=== PATIENT | female | born 1985 | race African-American/Black ===

== ENCOUNTER 2024-05-29 20:53 | Inpatient (IN) | payer MEDICARE, OTHER, SELFPAY ==
[2024-05-29] VITALS (11 sets, daily range): BP systolic 112–156; BP diastolic 50–91; BMI 40.8; BMI 39.4
[2024-05-29 17:22] LABS: % Basophils 0.3 % (0-2); % Immature Granulocytes 0.8 % (0-0.5); % Monocytes 5.9 % (1.7-9.3); Absolute Basophils 0.1 10^3/uL (0-0.2); Absolute Immature Granulocytes 0.1 10^3/uL (0-0.05); Absolute Lymphocytes 1.6 10^3/uL (1.2-3.4); Absolute Monocytes 0.9 10^3/uL (0.1-0.6); Absolute Neutrophils 11.9 10^3/uL (1.4-6.5); Hematocrit 45.3 % (37.0-47.0); Hemoglobin 14.6 g/dL (12.0-16.0); Mean Corp Hgb Conc. 32.2 g/dL (33.0-37.0); Mean Corpuscular Hgb 27.3 pg (27.0-31.0); Mean Corpuscular Volume 84.7 fL (81.0-99.0); Mean Platelet Volume 10.2 fL (7.4-10.4); Nucleated Red Blood Cells % 0 %; Platelet Count 456 10^3/uL (130-400); Red Blood Cell Count 5.35 10^6/uL (4.20-5.40); Red Cell Dist. Width 13.9 % (11.5-14.5); White Blood Cell Count 14.5 10^3/uL (4.8-10.8)
[2024-05-29 17:36] LABS: Troponin I < 0.012 ng/ml
[2024-05-29 18:19] LABS: HCG, Serum Qualitative Screen Negative
[2024-05-29 18:20] LABS: ALT (SGPT) 28 U/L (0-35); AST (SGOT) 24 U/L (14-36); Albumin 5.4 g/dl (3.5-5.0); Alkaline Phosphatase 102 U/L (38-126); Blood Urea Nitrogen 16 mg/dl (7-17); Calcium 9.8 mg/dl (8.4-10.2); Carbon Dioxide < 5 mmol/L (22-30); Estimated Creatinine Clearance 103 ml/min; Glucose 490 mg/dl (70-99); Total Bilirubin 0.7 mg/dl (0.2-1.3); Total Protein 9.9 g/dl (6.3-8.2); eGFR > 60.00
[2024-05-29 18:32] LABS: Chloride 103 mmol/L (98-107); Potassium 5.9 mmol/L (3.5-5.1); Sodium 134 mmol/L (135-145)
[2024-05-29] MEDS: NSS 1000 IV ×2 (18:32→21:48)
--- NOTE | 2024-05-29 18:32 | ED.GENMED ---
History of Present Illness
<Celine Allen NP - Last Filed: 05/31/24 16:26>
General
Chief Complaint: Chest Pain
Source: patient
Exam Limitations: none
Time Seen by Provider: 05/29/24 16:59
Nursing documentation reviewed up to this point in time: agreed with
History of Present Illness
History of Present Illness:
Patient to ED from [facility] with complaint of chest pain x 8 days. She also states she has not had access to her medications for the past week. Denies fever/chills, n/v/d. Brought to ED by residential staff for eval.
Past History
<Celine Allen NP - Last Filed: 05/31/24 16:26>
Past History
ED Past Medical History: NIDDM and Psychiatric (bipolar)
Social History
Tobacco: Non-smoker
Alcohol: None
Review of Systems
<Celine Allen NP - Last Filed: 05/31/24 16:26>
Review of Systems
Allergies reviewed?: Yes
All Other Systems: ROS reviewed and negative except as documented in HPI and ROS
Constitutional: Reports no symptoms
EENT: Reports no symptoms
Respiratory: Reports no symptoms
Cardiac: Reports chest pain
ABD/GI: Reports no symptoms
: Reports no symptoms
Musculoskeletal: Reports no symptoms
Skin: Reports no symptoms
Neurological: Reports weakness
Psychiatric: Reports no symptoms
Phy Exam
<Celine Allen NP - Last Filed: 05/31/24 16:26>
General Physical Exam
General Presentation: moderate distress
General age: appears stated age
General Skin: warm and dry
General Habitus: normal
Cardiovascular Exam
Cardiovascular Exam: regular rate/rhythm and no edema
Pulmonary Exam
Pulmonary Exam: lungs clear and no respiratory distress
Gastrointestinal Exam
Gastrointestinal Exam: normal bowel sounds, non tender, soft and no organomegaly
Musculoskeletal Exam
Musculoskeletal Exam: full ROM and neuro vasc intact
Skin Exam
Skin Exam: normal color, warm/dry and no rash
Psychiatric Exam
Psychiatric Exam: anxious
Scores
<Celine Allen NP - Last Filed: 05/31/24 16:26>
Heart Score for Chest Pain Patients
STEMI patient?: Not applicable
Course
<Celine Allen LEARNING DEVELOPMENT SPECIALIST - Last Filed: 05/31/24 16:26>
Orders/Labs/Results
Orders:
Orders
05/29/24 16:26
Electrocardiogram (*1) Urgent
Reason for Study: Chest Pain
05/29/24 16:27
EKG- Treatment ONCE
05/29/24 17:00
B-Hydroxybutyrate Urgent
Comment: ADDON
Complete Blood Count/With Diff Urgent
Comprehensive Metabolic Panel Urgent
HCG, Serum Qualitative Screen Urgent
Comment: ADD ON
Lipase Urgent
Comment: ADD ON
Troponin I Urgent
05/29/24 17:16
D-Dimer Urgent
05/29/24 17:17
Add On- LAB Urgent
Comments:: serum hcg qualitative
Tests Added?: serum hcg qualitative
05/29/24 18:22
Add On- LAB Urgent
Tests Added?: lipase
05/29/24 18:24
0.9% Sodium Chloride 1000 ml [Nss] 1,000 ml IV BOLUS
05/29/24 18:29
Add On- LAB Urgent
Comments:: B-hydroxybutyrate urgent
Tests Added?: B-hydroxybutyrate urgent
05/29/24 18:35
Urinalysis Reflex To Culture Urgent
Date Specimen was Collected: 05/29/24
Time Specimen was Collected: 18:34
Urine Microscopic Reflex Cult Urgent
Urine Culture Urgent
DO Source: U
Specimen Description:
Date Specimen was Collected: 05/29/24
Time Specimen was Collected: 18:34
05/29/24 18:37
Bedside Glucose- Treatment Q1H
Insulin Human Regular [Novolin R] 12 units IV NOW STA
05/29/24 18:45
Reg Insulin 100 Units/100 ml [Novolin R Insulin Infusion] 100 units in 100 ml IV NOW
05/29/24 19:44
B-Hydroxybutyrate Urgent
Basic Metabolic Panel Q2H
05/29/24 20:10
Admit/Transfer Patient As Directed
Co-Sign Provider:
Level of Care: Inpatient admission
Assign to:: ICU
Physician / Group: annalise
Diagnosis: DKA
Reason for Hospitalization: DKA
Expected length of stay greater than two midnights?: Yes
ELOS- Estimated Length of Stay in days: 3
I certify the patient meets the requirements for IP care: Yes
05/29/24 20:11
Code Status As Directed
Resuscitation Status: Full Code
PRN Pain Medication Management As Directed
May give lesser potent ordered pain med per pt: Yes
preference::
Protocol:: Medication orders for pain may be administered in a
manner that supports deferring to patient preference
when the pt is:
- Requesting an ordered lesser potent pain medication.
Least to most potent pain medications are defined
as: acetaminophen < NSAID < tramadol < opioids
(morphine, oxycodone, hydromorphone).
- Requesting a lesser dose of the same medication IF
ORDERED.
- Requesting a less intrusive route of administration
if both routes are prescribed by the provider (PO <
IV).
05/29/24 20:39
Lactated Ringers [Lr] 500 ml IV BOLUS
05/29/24 20:59
Basic Metabolic Panel Q2H
05/29/24 21:38
0.9% Sodium Chloride 1000 ml [Nss] 1,000 ml IV 150 mls/hr
Albuterol [ProAIR HFA INHALER] 1 puff INH R Q4HPRN PRN
Ondansetron Injectable [Zofran] 4 mg IV Q6HPRN PRN
Reg Insulin 100 Units/100 ml [Novolin R Insulin Infusion] 100 units in 100 ml IV PER PROTOCOL
Currently infusing. Continue current dose and titrate:: Yes
05/29/24 21:38
DIETARY CONSULT Routine
Reason for Consult: type 2 Dm
Diabetes Education Consult Routine
Reason for Consult: Other
Newly Diagnosed?: No
Activity As Directed
Activity Level: As Tolerated
Bedside Glucose Monitoring As Directed
Frequency: Q2H
Intake/ Output As Directed
Frequency: Per unit guidelines
Notify MD As Directed
Notify physician if: Nurse to contact provider when glucose reaches 250 to obtain orders for D5 0.45 NaCl
Vital Signs As Directed
Frequency: Per unit guidelines
DX Deep Vein Thrombosis Video Routine
DX Deep Vein Thrombosis Video Routine
05/29/24 22:00
Escitalopram Oxalate [Lexapro] 20 mg PO HS
Olanzapine [Zyprexa] 15 mg PO HS
Sertraline HCl [Zoloft] 25 mg PO HS
Trazodone [Desyrel] 100 mg PO HS
05/30/24 05:39
Cardiovascular Evaluation IN AM
Complete Blood Count/No Diff IN AM
Glycohemoglobin (HgbA1c) IN AM
05/30/24 08:00
Fluticasone/Salmeterol 45/21 [Advair Hfa 45/21 Mcg Inhaler] 2 puff INH R BID
Oxcarbazepine [Trileptal] 900 mg PO BID
05/30/24 18:00
Enoxaparin Sodium [Lovenox] 40 mg SC QPM
05/31/24 04:57
Complete Blood Count/No Diff IN AM
06/01/24 06:00
Complete Blood Count/No Diff IN AM
06/02/24 06:00
Complete Blood Count/No Diff IN AM
06/03/24 06:00
Complete Blood Count/No Diff IN AM
Abnormal Lab Results
05/29/24 05/29/24 05/29/24
17:00 17:16 18:35
WBC 14.5 H 10^3/uL
(4.8-10.8)
MCHC 32.2 L g/dL
(33.0-37.0)
Plt Count 456 H 10^3/uL
(130-400)
Abs Immat Gran (auto) 0.1 H 10^3/uL
(0-0.05)
Absolute Neuts (auto) 11.9 H 10^3/uL
(1.4-6.5)
Absolute Monos (auto) 0.9 H 10^3/uL
(0.1-0.6)
Immature Gran % 0.8 H %
(0-0.5)
Neutrophils % 82.0 H %
(42.2-75.2)
Lymphocytes % 11.0 L %
(20.5-51.1)
D-Dimer 0.70 H ug/mlFEU
(0.00-0.50)
Sodium 134 L mmol/L
(135-145)
Potassium 5.9 H mmol/L
(3.5-5.1)
Carbon Dioxide < 5 L* mmol/L
(22-30)
Glucose 490 H* mg/dl
(70-99)
Total Protein 9.9 H g/dl
(6.3-8.2)
Albumin 5.4 H g/dl
(3.5-5.0)
Urine Ketones 3+ A
(Negative)
Ur Occult Blood Reflex 1+ A
(Negative)
Urine RBC 3-6 A /HPF
(0-2)
Urine Bacteria (Reflex) Moderate A
(Negative)
Urine Glucose 3+ A
(Negative)
Urine Albumin (Reflex) 1+ A
(Neg - Trace)
B-Hydroxybutyrate 8.72 H mmol/L
(0.02-0.27)
POC Glucose
05/29/24 05/29/24 05/29/24
19:12 19:44 20:04
WBC
MCHC
Plt Count
Abs Immat Gran (auto)
Absolute Neuts (auto)
Absolute Monos (auto)
Immature Gran %
Neutrophils %
Lymphocytes %
D-Dimer
Sodium 133 L mmol/L
(135-145)
Potassium
Carbon Dioxide < 5 L* mmol/L
(22-30)
Glucose 407 H mg/dl
(70-99)
Total Protein
Albumin
Urine Ketones
Ur Occult Blood Reflex
Urine RBC
Urine Bacteria (Reflex)
Urine Glucose
Urine Albumin (Reflex)
B-Hydroxybutyrate 8.81 H mmol/L
(0.02-0.27)
POC Glucose 446 H mg/dl 391 H mg/dl
(70-99) (70-99)
05/29/24 17:00
05/29/24 20:45
Vital Signs
Initial and Last Documented VS:
Initial Vital Signs
Temp Pulse Resp BP Pulse Ox
36.6 C 100 22 151/65 100
05/29/24 16:31 05/29/24 16:31 05/29/24 16:31 05/29/24 16:31 05/29/24 16:31
Last Documented Vital Signs
Temp Pulse Resp BP Pulse Ox
36.8 C 106 16 150/79 100
06/02/24 03:54 06/02/24 07:54 06/02/24 07:54 06/02/24 03:54 06/02/24 07:54
<Osito Thompson MD - Last Filed: 06/02/24 08:59>
Orders/Labs/Results
Orders:
Orders
05/29/24 16:26
Electrocardiogram (*1) Urgent
Reason for Study: Chest Pain
05/29/24 16:27
EKG- Treatment ONCE
05/29/24 17:00
B-Hydroxybutyrate Urgent
Comment: ADDON
Complete Blood Count/With Diff Urgent
Comprehensive Metabolic Panel Urgent
HCG, Serum Qualitative Screen Urgent
Comment: ADD ON
Lipase Urgent
Comment: ADD ON
Troponin I Urgent
05/29/24 17:16
D-Dimer Urgent
05/29/24 17:17
Add On- LAB Urgent
Comments:: serum hcg qualitative
Tests Added?: serum hcg qualitative
05/29/24 18:22
Add On- LAB Urgent
Tests Added?: lipase
05/29/24 18:24
0.9% Sodium Chloride 1000 ml [Nss] 1,000 ml IV BOLUS
05/29/24 18:29
Add On- LAB Urgent
Comments:: B-hydroxybutyrate urgent
Tests Added?: B-hydroxybutyrate urgent
05/29/24 18:35
Urinalysis Reflex To Culture Urgent
Date Specimen was Collected: 05/29/24
Time Specimen was Collected: 18:34
Urine Microscopic Reflex Cult Urgent
Urine Culture Urgent
DO Source: U
Specimen Description:
Date Specimen was Collected: 05/29/24
Time Specimen was Collected: 18:34
05/29/24 18:37
Bedside Glucose- Treatment Q1H
Insulin Human Regular [Novolin R] 12 units IV NOW STA
05/29/24 18:45
Reg Insulin 100 Units/100 ml [Novolin R Insulin Infusion] 100 units in 100 ml IV NOW
05/29/24 19:44
B-Hydroxybutyrate Urgent
Basic Metabolic Panel Q2H
05/29/24 20:10
Admit/Transfer Patient As Directed
Co-Sign Provider:
Level of Care: Inpatient admission
Assign to:: ICU
Physician / Group: annalise
Diagnosis: DKA
Reason for Hospitalization: DKA
Expected length of stay greater than two midnights?: Yes
ELOS- Estimated Length of Stay in days: 3
I certify the patient meets the requirements for IP care: Yes
05/29/24 20:11
Code Status As Directed
Resuscitation Status: Full Code
PRN Pain Medication Management As Directed
May give lesser potent ordered pain med per pt: Yes
preference::
Protocol:: Medication orders for pain may be administered in a
manner that supports deferring to patient preference
when the pt is:
- Requesting an ordered lesser potent pain medication.
Least to most potent pain medications are defined
as: acetaminophen < NSAID < tramadol < opioids
(morphine, oxycodone, hydromorphone).
- Requesting a lesser dose of the same medication IF
ORDERED.
- Requesting a less intrusive route of administration
if both routes are prescribed by the provider (PO <
IV).
05/29/24 20:39
Lactated Ringers [Lr] 500 ml IV BOLUS
05/29/24 20:59
Basic Metabolic Panel Q2H
05/29/24 21:38
0.9% Sodium Chloride 1000 ml [Nss] 1,000 ml IV 150 mls/hr
Albuterol [ProAIR HFA INHALER] 1 puff INH R Q4HPRN PRN
Ondansetron Injectable [Zofran] 4 mg IV Q6HPRN PRN
Reg Insulin 100 Units/100 ml [Novolin R Insulin Infusion] 100 units in 100 ml IV PER PROTOCOL
Currently infusing. Continue current dose and titrate:: Yes
05/29/24 21:38
DIETARY CONSULT Routine
Reason for Consult: type 2 Dm
Diabetes Education Consult Routine
Reason for Consult: Other
Newly Diagnosed?: No
Activity As Directed
Activity Level: As Tolerated
Bedside Glucose Monitoring As Directed
Frequency: Q2H
Intake/ Output As Directed
Frequency: Per unit guidelines
Notify MD As Directed
Notify physician if: Nurse to contact provider when glucose reaches 250 to obtain orders for D5 0.45 NaCl
Vital Signs As Directed
Frequency: Per unit guidelines
DX Deep Vein Thrombosis Video Routine
DX Deep Vein Thrombosis Video Routine
05/29/24 22:00
Escitalopram Oxalate [Lexapro] 20 mg PO HS
Olanzapine [Zyprexa] 15 mg PO HS
Sertraline HCl [Zoloft] 25 mg PO HS
Trazodone [Desyrel] 100 mg PO HS
05/30/24 05:39
Cardiovascular Evaluation IN AM
Complete Blood Count/No Diff IN AM
Glycohemoglobin (HgbA1c) IN AM
05/30/24 08:00
Fluticasone/Salmeterol 45/21 [Advair Hfa 45/21 Mcg Inhaler] 2 puff INH R BID
Oxcarbazepine [Trileptal] 900 mg PO BID
05/30/24 18:00
Enoxaparin Sodium [Lovenox] 40 mg SC QPM
05/31/24 04:57
Complete Blood Count/No Diff IN AM
06/01/24 06:00
Complete Blood Count/No Diff IN AM
06/02/24 06:00
Complete Blood Count/No Diff IN AM
06/03/24 06:00
Complete Blood Count/No Diff IN AM
Abnormal Lab Results
05/29/24 05/29/24 05/29/24
17:00 17:16 18:35
WBC 14.5 H 10^3/uL
(4.8-10.8)
MCHC 32.2 L g/dL
(33.0-37.0)
Plt Count 456 H 10^3/uL
(130-400)
Abs Immat Gran (auto) 0.1 H 10^3/uL
(0-0.05)
Absolute Neuts (auto) 11.9 H 10^3/uL
(1.4-6.5)
Absolute Monos (auto) 0.9 H 10^3/uL
(0.1-0.6)
Immature Gran % 0.8 H %
(0-0.5)
Neutrophils % 82.0 H %
(42.2-75.2)
Lymphocytes % 11.0 L %
(20.5-51.1)
D-Dimer 0.70 H ug/mlFEU
(0.00-0.50)
Sodium 134 L mmol/L
(135-145)
Potassium 5.9 H mmol/L
(3.5-5.1)
Carbon Dioxide < 5 L* mmol/L
(22-30)
Glucose 490 H* mg/dl
(70-99)
Total Protein 9.9 H g/dl
(6.3-8.2)
Albumin 5.4 H g/dl
(3.5-5.0)
Urine Ketones 3+ A
(Negative)
Ur Occult Blood Reflex 1+ A
(Negative)
Urine RBC 3-6 A /HPF
(0-2)
Urine Bacteria (Reflex) Moderate A
(Negative)
Urine Glucose 3+ A
(Negative)
Urine Albumin (Reflex) 1+ A
(Neg - Trace)
B-Hydroxybutyrate 8.72 H mmol/L
(0.02-0.27)
POC Glucose
05/29/24 05/29/24 05/29/24
19:12 19:44 20:04
WBC
MCHC
Plt Count
Abs Immat Gran (auto)
Absolute Neuts (auto)
Absolute Monos (auto)
Immature Gran %
Neutrophils %
Lymphocytes %
D-Dimer
Sodium 133 L mmol/L
(135-145)
Potassium
Carbon Dioxide < 5 L* mmol/L
(22-30)
Glucose 407 H mg/dl
(70-99)
Total Protein
Albumin
Urine Ketones
Ur Occult Blood Reflex
Urine RBC
Urine Bacteria (Reflex)
Urine Glucose
Urine Albumin (Reflex)
B-Hydroxybutyrate 8.81 H mmol/L
(0.02-0.27)
POC Glucose 446 H mg/dl 391 H mg/dl
(70-99) (70-99)
05/29/24 17:00
05/29/24 20:45
Vital Signs
Initial and Last Documented VS:
Initial Vital Signs
Temp Pulse Resp BP Pulse Ox
36.6 C 100 22 151/65 100
05/29/24 16:31 05/29/24 16:31 05/29/24 16:31 05/29/24 16:31 05/29/24 16:31
Last Documented Vital Signs
Temp Pulse Resp BP Pulse Ox
36.8 C 106 16 150/79 100
06/02/24 03:54 06/02/24 07:54 06/02/24 07:54 06/02/24 03:54 06/02/24 07:54
<Celine Allen NP - Last Filed: 05/31/24 16:26>
*Radiology
Radiology exam reviewed: radiology read reviewed
*Pulse Oximetry
Patient hypoxic: no
*Critical Care Note
Total Time (30-74mins, 75-104mins- exclusive of procedures): Not Applicable
ED Attending Note
<Celine Allen NP - Last Filed: 05/31/24 16:26>
-
Portions of this chart may have been created with voice recognition software.� Occasional wrong word or��sound alike� substitutions may have occurred due to the inherent limitations of voice recognition software.
<Osito Thompson MD - Last Filed: 06/02/24 08:59>
ED Attending Note
Patient seen and examined by attending physician: Yes
ED Attending Note:
I have seen and evaluated the patient with a [id number] encounter. I have spoken to the advance practicer provider and involved in the medical history, the physical exam, medical decision making.
Evaluation and management service: agree unless noted differently below.
Results interpretation: agree unless noted differently below.
Focused HPI: 39-year-old female with a past medical history of hypertension, asthma, diabetes, obesity who presents to the ER from [facility] is presenting for evaluation of chest pain but was also found to be severely
hyperglycemic. Patient reports that she has had chest pain for the past week�she describes aching pain associated palpitations. She denies any shortness of breath. She says that she has not been able to take her metformin for the past week.
Physical exam: Awake alert not in distress. Hypertensive, tachycardic, tachypneic; normothermic, normal pulse ox. She has no cardiac rubs gallops or murmurs. Lungs are clear to auscultation bilaterally. Abdomen soft, nontender to deep palpation.
No edema in her extremities.
Medical Decision Makin-year-old female presents for evaluation of chest pain and also hyperglycemia in the setting of metformin noncompliance. Vitals and exam as above. Labs were sent off including a CBC which shows signs consistent with
hemoconcentration. CMP shows anion gap metabolic acidosis with bicarb less than 5. Potassium 5.9. Glucose 490. Consistent with DKA. Given IV fluids, will start insulin infusion. Admit for continued management. Trend troponin. Check chest
x-ray. UA pending.
Discharge Plan
Departure
Patient Disposition: Admit
Date of Disposition: 05/29/24
Time of Disposition: 18:48
Presentation/result/management discussed w/ accepting MD/DO: Hospitalist
Patient with high blood pressure during this ER visit?: No
Condition: Fair
Covid-19: Not Applicable
Discharge Problem:
DKA (diabetic ketoacidosis)
Interventions
Interventions:
*Risk Screen - Suicide Last Done: 05/29/24 16:39
*General Assessment Last Done: 05/29/24 16:39
*Neglect/Abuse Screening Last Done: 05/29/24 16:39
*ED COVID-19 Vaccine History Last Done: 05/29/24 16:39
*Nursing Disposition Last Done: 05/29/24 21:18
ED- Cardiac Assessment Last Done: 05/29/24 16:55
Discharge Date and Time
Discharge Date/Time: 05/29/24 21:18
[2024-05-29 18:39] LABS: Lipase 270 U/L (23-300)
[2024-05-29 18:50] LABS: Urine Albumin 1+ (Neg - Trace); Urine Bilirubin Negative (Negative); Urine Character Clear (Clear); Urine Color Yellow; Urine Glucose 3+ (Negative); Urine Ketone 3+ (Negative); Urine Leukocyte Negative (Negative); Urine Nitrite Negative (Negative); Urine Occult Blood 1+ (Negative); Urine Specific Gravity 1.025 (<1.030); Urine Urobilinogen Negative (Neg - 1+)
[2024-05-29] MEDS: NOVOLIN R 12 UNITS IV (19:01)
[2024-05-29 19:03] LABS: Urine White Cell 0-2 /HPF (0-5)
[2024-05-29 19:04] LABS: Urine Bacteria Moderate (Negative)
[2024-05-29 19:13] LABS: Glucose - Point of Care 446 mg/dl (70-99)
[2024-05-29] MEDS: NOVOLIN R INSULIN INFUSION 100 IV (19:13)
--- NOTE | 2024-05-29 19:32 | HPS.HSE ---
Family Physician
-
Family Physician: * NONE
Chief Complaint
-
palpitation
History of Present Illness
39 year old with PMH for DM, athma, HTN, Bipolar presented to us with palpitation for past few days. patient stated lower back pain. she was diagnosed with diabetes insipidus a year ago,since then she is on metformin. She also states she has not
had access to her medications for the past week. Denies fever/chills, n/v/d. patient denied sob. denied HUANG,dizzy or syncope. denied abdominal pain,n,v,d. denied dysuria or hematuria, but stated urgency.
on arrival she was noted in [facility]. admitting for further management.
Medical History
Past Medical History
Past Medical History: Reports Other
Additional Past Medical History:
DM insipidus
type 2 Dm
asthma
Bipolar
HTn
Past Surgical History: Reports None
Social History
Tobacco: Non-smoker
Alcohol: None
Drug: None
Family History
Family History: Not pertinent
Allergies / Home Medications
Allergies reflects when Allergies were last updated in [facility].
Home Medications with original date entered in [facility]
Allergy/Medication List:
Allergies
Allergy/AdvReac Type Severity Reaction Status Date / Time
acetaminophen [From Tylenol] Allergy throat Verified 05/29/24 16:28
closing
latex Allergy Rash Verified 05/29/24 16:38
Home Medications
albuterol sulfate 90 mcg/actuation breath activated powder inhaler (ProAir RespiClick) 1 inh inhalation R Q4HPRN PRN sob/wheezing 05/29/24
escitalopram oxalate 20 mg tablet 20 mg PO HS 05/29/24
fluticasone 100 mcg-salmeterol 50 mcg/dose blistr powdr for inhalation 1 inh inhalation R BID 05/29/24
metformin 500 mg tablet 500 mg PO BID 05/29/24
olanzapine 15 mg tablet 15 mg PO HS 05/29/24
oxcarbazepine 300 mg tablet 900 mg PO BID 05/29/24
sertraline 25 mg tablet 25 mg PO HS 05/29/24
trazodone 100 mg tablet 100 mg PO HS 05/29/24
Review of Systems
-
Constitutional: Reports No Symptoms
EENT: Reports No Symptoms
Respiratory: Reports No Symptoms
Cardiac: Reports Palpitations
Abdomen/GI: Reports No Symptoms
: Reports Urgency
Musculoskeletal: Reports No Symptoms
Skin: Reports No Symptoms
Neurological: Reports No Symptoms
Endocrine: Reports No Symptoms
Hematologic/Lymphatic: Reports No Symptoms
Psych: Reports No Symptoms
Physical Exam
Vital Signs
Vital Signs
Temp Pulse Resp BP Pulse Ox
97.8 F 108 26 122/50 100
05/29/24 16:31 05/29/24 19:15 05/29/24 19:15 05/29/24 19:00 05/29/24 18:30
Physical Exam
General: Well Developed, Well Nourished and No Apparent Distress
HEENT: NormoCephalic, Moist mucous membranes and Atraumatic
Respiratory: Clear
Cardiac: S1/S2 and Regular Rhythm; No Murmur or Rub
GI: Soft, Non Tender, Non Distended and Normal Bowel Sounds; No Organomegaly
Rectal: Deferred by Provider
Musculoskeletal: No Clubbing, No Cyanosis and No Edema
Skin: No Rash
Neuro: AO x 3 and Nonfocal/grossly intact
Psych: Calm
Laboratory Results
-
05/29/24 17:00
Laboratory Results
Total Bilirubin 0.7 mg/dl (0.2-1.3) 05/29/24 17:00
AST 24 U/L (14-36) 05/29/24 17:00
ALT 28 U/L (0-35) 05/29/24 17:00
Alkaline Phosphatase 102 U/L (38-126) 05/29/24 17:00
Troponin I < 0.012 ng/ml 05/29/24 17:00
Lipase 270 U/L (23-300) 05/29/24 17:00
Data Reviewed
-
Lab Data: Labs Reviewed by me
Impression/Plan
-
#diabetic ketoacidosis
#hxt of DM insipidus
-fluids continued
-insulin infusion
-monitor blood sugar
-hold metformin
-if blood sugar drop below 200,initiate on [id number] saline
#/palpitation likely from DM ketoacidosis
-trend trop
-EKg with NSR
-continue to trend trop
#leukocytosis likely reactive
-wbc 14.5
-UA negative
-ctm
#hxt of asthma
-not in acute exacerbation
-nebs from home continued
#Bipolar
-citalopram continued
-olanzapine, oxcarbazepine, sertraline continued
-Trazodone continued
#DVT Prophylaxis
-scd
#CODE status
-full code
[2024-05-29 20:07] LABS: Glucose - Point of Care 391 mg/dl (70-99)
[2024-05-29 20:13] LABS: Blood Urea Nitrogen 16 mg/dl (7-17); Calcium 9.1 mg/dl (8.4-10.2); Carbon Dioxide < 5 mmol/L (22-30); Estimated Creatinine Clearance 103 ml/min; Glucose 407 mg/dl (70-99); eGFR > 60.00
[2024-05-29 20:21] LABS: B-Hydroxybutyrate 8.72 mmol/L (0.02-0.27)
--- NOTE | 2024-05-29 20:40 | W.PN.UPDATE ---
Update Note
Progress Note Update
Patient seen in conjunction with MACHELLE. I agree with the findings on history and physical. I concur with the assessment and plan as stated otherwise.
This is a 39-year-old female with past medical history of type 2 diabetes on metformin, anxiety depression and mild intermittent asthma who presents to the emergency department with complaints of several days of chest pain and was found to be in DKA.
Patient is being transferred to present. She has been off her medications for about 8 days because she is does not have access to them. She reports that she has had DKA in the past and is not clear whether this was in the setting of diagnosis.
She is never been on insulin.
She reports nausea and some chest pain. She denies shortness of breath. She denies wheezing or cough.
On arrival in the emergency department patient was afebrile she was normal tensive at 122/80 and she was borderline tachycardic at 100. ECG shows a sinus tach at 100. She was satting 100% on room air. Troponin was negative. She had a white count
of 14 with a normal hemoglobin and platelet count. Chemistries were mostly unremarkable with a potassium of 5.9 with a bicarb of less than 5. Beta-hydroxybutyrate was elevated. UA shows urinary ketones.
Assessment and plan
DKA
- admit to icu, insulin protocol.
- NS 1 L in ED, giving additional 500 ml LR bolus
- insulin gtt, glucose q 1, chem q 2 - 4.
- NS at 150 ml/hr for now
- antiemetics prn
- npo, holding metformin
- a1c and lipid panel in am
- intensivisit consult
CP - Non-cardiac. Trop negative. ECG non-ischemic
- trend trop for now
Asthma
- prn albuterol
- continue ICS
Continue Trileptal and sertraline
DVT PPX - lovenox
Code Status - Full code.
[2024-05-29 20:49] LABS: Chloride 105 mmol/L (98-107); Potassium 4.6 mmol/L (3.5-5.1); Sodium 133 mmol/L (135-145)
[2024-05-29 21:02] LABS: Glucose - Point of Care 277 mg/dl (70-99)
[2024-05-29 21:45] LABS: Glucose - Point of Care 264 mg/dl (70-99)
[2024-05-29 21:45] LABS: Blood Urea Nitrogen 16 mg/dl (7-17); Calcium 8.8 mg/dl (8.4-10.2); Carbon Dioxide < 5 mmol/L (22-30); Chloride 107 mmol/L (98-107); Estimated Creatinine Clearance 114 ml/min; Glucose 290 mg/dl (70-99); Potassium 4.8 mmol/L (3.5-5.1); Sodium 134 mmol/L (135-145); eGFR > 60.00
[2024-05-29 22:05] LABS: B-Hydroxybutyrate 8.81 mmol/L (0.02-0.27)
[2024-05-29 22:26] LABS: Glucose - Point of Care 218 mg/dl (70-99)
--- NOTE | 2024-05-29 22:26 | PTCARENOTE ---
On arrival from ED, pt SOB with exertion moving from stretcher to bed, AAOx3, denies pain, pt states odd comments during admit questions that sometimes do not make sense, staff asking pt to clarify and then pt gives a different more appropriate
answer. DYNAMITE SHOOTER made aware, no new orders at this time. SR to low ST on the monitor, denies chest pain, 99% RA, tachypneic, purwick in place, R elbow bruise on admit, two inhalers from home noted and pharmacy is aware, inhalers remain at bedside, initial
AccuCheck was 264, insulin gtt was received from ED running at 3 units see flowsheet. oriented to room, bed alarm on and call navarrete in reach. RUE midline intact placed by IV team.
[2024-05-29] MEDS: DESYREL PO (23:02)
[2024-05-29] MEDS: ZYPREXA 15 MG PO (23:06)
[2024-05-29] MEDS: LEXAPRO 20 MG PO (23:06)
[2024-05-29 23:07] LABS: Glucose - Point of Care 213 mg/dl (70-99)
[2024-05-29 23:15] LABS: Troponin I < 0.012 ng/ml
[2024-05-30] VITALS (24 sets, daily range): BP systolic 101–149; BP diastolic 41–109; BMI 39.4
[2024-05-30 00:12] LABS: Glucose - Point of Care 194 mg/dl (70-99)
[2024-05-30] MEDS: D5/0.45%NSS with KCL 20 MEQ 1000 IV ×4 (00:14→20:16)
[2024-05-30] MEDS: ZOLOFT 25 MG PO ×2 (00:14→23:01)
[2024-05-30 01:13] LABS: Glucose - Point of Care 197 mg/dl (70-99)
[2024-05-30 02:12] LABS: Glucose - Point of Care 214 mg/dl (70-99)
[2024-05-30 03:08] LABS: Blood Urea Nitrogen 14 mg/dl (7-17); Calcium 8.6 mg/dl (8.4-10.2); Carbon Dioxide < 5 mmol/L (22-30); Chloride 109 mmol/L (98-107); Estimated Creatinine Clearance > 125 ml/min; Glucose 213 mg/dl (70-99); Potassium 4.8 mmol/L (3.5-5.1); Sodium 135 mmol/L (135-145); eGFR > 60.00
[2024-05-30 03:17] LABS: Glucose - Point of Care 223 mg/dl (70-99)
--- NOTE | 2024-05-30 04:00 | PTCARENOTE ---
no changes from prior assessment, denies pain and SOB, denies N/V, pt appears to be resting comfortably in bed, call navarrete in reach. remains on insulin gtt per orders.
[2024-05-30 04:13] LABS: Glucose - Point of Care 217 mg/dl (70-99)
[2024-05-30 05:18] LABS: Glucose - Point of Care 251 mg/dl (70-99)
[2024-05-30 05:57] LABS: Hematocrit 34.7 % (37.0-47.0); Hemoglobin 11.9 g/dL (12.0-16.0); Mean Corp Hgb Conc. 34.3 g/dL (33.0-37.0); Mean Corpuscular Hgb 27.7 pg (27.0-31.0); Mean Corpuscular Volume 80.7 fL (81.0-99.0); Mean Platelet Volume 10.1 fL (7.4-10.4); Platelet Count 326 10^3/uL (130-400); Red Cell Dist. Width 13.8 % (11.5-14.5); White Blood Cell Count 14.4 10^3/uL (4.8-10.8)
--- NOTE | 2024-05-30 06:03 | PTCARENOTE ---
Hgb went from 14.6 to 11.9 no signs of bleeding noted, ICU HOME SECURITY PROFESSIONAL made aware, no new orders at this time
[2024-05-30 06:14] LABS: Glucose - Point of Care 239 mg/dl (70-99)
[2024-05-30 07:02] LABS: Glucose - Point of Care 304 mg/dl (70-99)
[2024-05-30] MEDS: ADVAIR HFA 45/21 MCG INHALER 2 PUFF INH ×2 (07:30→20:37)
--- NOTE | 2024-05-30 07:33 | W.PN.HOSP.TC ---
Today's Communication/Plan
-
insulin gtt
awaiting AM BMP; ABG ordered given level of acidosis
DM BLASTING WORKER consult
Assessment / Plan
Assessment / Plan
This is a 39-year-old female with past medical history of type 2 diabetes on metformin, anxiety depression and mild intermittent asthma who presents to the emergency department with complaints of several days of chest pain and was found to be in
DKA. She has been off her medications for about 8 days because she is does not have access to them.
Assessment and plan
DKA
- admitted to ICU
- patient's BGL down-trending but bicarb has remained < 5 --> obtain repeat labs now and obtain ABG
- continue insulin gtt
- continue IVF - NS + KCl 20 @ 150cc/hr ; add dextrose when glucose < 200
- antiemetics prn
- npo, holding metformin - hold indefinitely with this level of acidosis
- a1c and lipid panel in am
- intensivisit consult
- BLASTING WORKER DM consult
Reactive Leukocytosis
Anemia
-likely 2/2 dilution
CP - Non-cardiac. Trop negative. ECG non-ischemic
-Troponins negative; patient stating chest pain resolved this morning
Asthma
- prn albuterol
- continue ICS
Continue Trileptal and sertraline
DVT PPX - lovenox
Code Status - Full code.
Total Critical Care Time 35 minutes. I was immediately available to the patient and staff. I personally examined, reviewed labs, diagnostic images/reports, interpretations, treatment plans, discussed patient care with other providers and family
or caregivers (if patient is unable to make decisions), entered orders as appropriate and documented the medical record.
Anticipated Discharge: 24 - 48 hours
Subjective/Interval History
-
Date of Service: May 30, 2024
patient is sleeping but arousable. denies current chest pain. states her abdomen feels full
Objective Data
-
Labs:
Laboratory Results
05/29/24 05/29/24 05/29/24
19:44 20:59 22:00
WBC
Hgb
Hct
Plt Count
Sodium 133 L 134 L Cancelled
Potassium 4.6 4.8 Cancelled
Chloride 105 107
Carbon Dioxide < 5 L* < 5 L*
BUN 16 16
Creatinine 1.0 0.9
Glucose 407 H 290 H
Calcium 9.1 8.8
05/29/24 05/29/24 05/30/24
22:00 23:00 01:45
WBC
Hgb
Hct
Plt Count
Sodium Cancelled 135
Potassium Cancelled Cancelled 4.8
Chloride Cancelled Cancelled 109 H
Carbon Dioxide Cancelled Cancelled < 5 L*
BUN Cancelled Cancelled 14
Creatinine Cancelled Cancelled 0.6
Glucose Cancelled Cancelled 213 H
Calcium Cancelled Cancelled 8.6
05/30/24 05/30/24
05:39 10:00
WBC 14.4 H
Hgb 11.9 L
Hct 34.7 L
Plt Count 326 D
Sodium Cancelled Pending
Potassium Cancelled Pending
Chloride Cancelled Pending
Carbon Dioxide Cancelled Pending
BUN Cancelled Pending
Creatinine Cancelled Pending
Glucose Cancelled Pending
Calcium Cancelled Pending
Vital Signs:
Vital Signs
Temp Pulse Resp BP Pulse Ox
97.4 F 78 18 143/72 100
05/30/24 03:35 05/30/24 06:00 05/30/24 06:00 05/30/24 06:00 05/30/24 06:00
I&O
05/29/24 05/30/24 05/31/24
06:59 06:59 06:59
Intake Total
Output Total 250 / 250
Balance -220 / -220
Review of Systems
-
History Source: Patient
All other systems: Reviewed and negative
Physical Exam
-
General: No Apparent Distress
HEENT: PERRLA
Respiratory: Clear to Auscultation; Negative Wheezes
Cardiac: Regular Rhythm and S1/S2
GI: Soft and Nontender
Musculoskeletal: No Edema
Skin: Warm and Dry; Negative Rash
Neuro: Other (sleepy but arousable and will answer full questions)
Psych: Calm
Data Reviewed
-
Diagnostic Radiology: Report Reviewed by me
Labs: Labs Reviewed by me
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
--- NOTE | 2024-05-30 08:00 | PTCARENOTE ---
Received pt sleeping.Awakens to voice.Oriented x 3.Speech is appropriate.Pt states ' I have to poop'.Pt ambulated to toilet with minimal assistance.Gait is steady.Declined offer to assist to chair stating she wanted to go back to bed.Denies pain but
c/o general malaise.Declined am care.SR noted.IVF and Insulin gtt infusing.Lungs CTA,POX 98% on RA.Does not want to eat.No BM.Purewick discontinued as pt voided in bathroom.Plan of care discussed with pt.
[2024-05-30 08:05] LABS: HDL Cholesterol 38 mg/dl; LDL Cholesterol, Calculated 121 mg/dl; Total Cholesterol 179 mg/dl (50-199); Triglyceride 103 mg/dl (10-149); Very Low Density Lipoprotein 20 mg/dl (0-30)
[2024-05-30 08:06] LABS: Glucose - Point of Care 222 mg/dl (70-99)
[2024-05-30] MEDS: TRILEPTAL 900 MG PO ×2 (08:10→20:08)
[2024-05-30 08:13] LABS: B.E. -18.2 mmol/L; O2 Saturation % 99.7 % (94-98); PO2 173 mmHg (83-108); pH 7.23 (7.35-7.45)
[2024-05-30 08:15] LABS: HCO3 7.1 mmol/L (21-28); PCO2 17 mmHg (32-35)
[2024-05-30 08:31] LABS: Blood Urea Nitrogen 12 mg/dl (7-17); Calcium 8.6 mg/dl (8.4-10.2); Carbon Dioxide 6 mmol/L (22-30); Chloride 109 mmol/L (98-107); Estimated Creatinine Clearance > 125 ml/min; Glucose 256 mg/dl (70-99); Potassium 4.1 mmol/L (3.5-5.1); Sodium 133 mmol/L (135-145); eGFR > 60.00
[2024-05-30 08:59] LABS: Blood Urea Nitrogen 12 mg/dl (7-17); Calcium 8.5 mg/dl (8.4-10.2); Carbon Dioxide < 5 mmol/L (22-30); Chloride 109 mmol/L (98-107); Estimated Creatinine Clearance > 125 ml/min; Glucose 240 mg/dl (70-99); Potassium 4.7 mmol/L (3.5-5.1); Sodium 134 mmol/L (135-145); eGFR > 60.00
[2024-05-30 09:08] LABS: HDL Cholesterol 34 mg/dl; LDL Cholesterol, Calculated 117 mg/dl; Total Cholesterol 170 mg/dl (50-199); Triglyceride 96 mg/dl (10-149); Very Low Density Lipoprotein 19 mg/dl (0-30)
[2024-05-30 09:12] LABS: Glucose - Point of Care 257 mg/dl (70-99)
[2024-05-30 09:27] LABS: Glycohemoglobin (HgbA1c) 14.4 % (4.0-5.6)
[2024-05-30 10:06] LABS: Glucose - Point of Care 217 mg/dl (70-99)
--- NOTE | 2024-05-30 10:28 | CM ---
Per Damon Scott in Security, they were notified by [facility] that this patient was released from custody. Update to CM.
--- NOTE | 2024-05-30 10:56 | PN.DE.MGMTRT ---
Insulin Management
- -
05/30/2024 Diabetes Management Consult
Patient admitted 05/29 c/o chest pain for 8 days. Found to be in DKA. PMH Type 2 diabetes, bipolar, HTN, asthma, obesity. Prior to admission was ordered 500 mg metformin BID. A1C 14.4%, cr .6, eGFR > 60.
Patient is sleeping very difficult to arouse, opens eyes briefly, but dozes right back. She was able to tell me she has had diabetes 21 years, initially gestational diabetes. States she was not able to take her metformin because pharmacy told her
the prescription had already been picked up. She states she does have a glucose monitor but she will take another one, provided Contour Next.
Glucose on admission 490, GAP 30. GAP now 18, on insulin infusion @ 3 to 5 units per hour. Will continue insulin infusion at this time.
I spoke with Supervisor Locomotive and rounding team.
Patient will need insulin at discharge. Will follow
Diabetes History
- -
Type of Diabetes: 2
Pre-Admission Diabetes Regimen
05/29/24 05/29/24 05/29/24
17:00 19:44 20:45
Creatinine 1.0 1.0 Cancelled
05/29/24 05/29/24 05/29/24
20:59 22:00 22:45
Creatinine 0.9 Cancelled Cancelled
05/29/24 05/30/24 05/30/24
23:00 01:45 05:39
Creatinine Cancelled 0.6 0.6
05/30/24
08:04
Creatinine 0.6
Lab Results
Hemoglobin A1c 14.4 % (4.0-5.6) H 05/30/24 05:39
Insulin Pump Settings
IP Diabetes Regimen
05/29/24 05/29/24 05/29/24
17:00 19:12 19:44
Glucose 490 H* 407 H
POC Glucose 446 H
05/29/24 05/29/24 05/29/24
20:04 20:45 20:59
Glucose Cancelled 290 H
POC Glucose 391 H
05/29/24 05/29/24 05/29/24
21:01 21:33 22:00
Glucose Cancelled
POC Glucose 277 H 264 H
05/29/24 05/29/24 05/29/24
22:14 22:45 22:55
Glucose Cancelled
POC Glucose 218 H 213 H
05/29/24 05/30/24 05/30/24
23:00 00:01 01:01
Glucose Cancelled
POC Glucose 194 H 197 H
05/30/24 05/30/24 05/30/24
01:45 02:00 03:05
Glucose 213 H
POC Glucose 214 H 223 H
05/30/24 05/30/24 05/30/24
04:01 05:06 05:39
Glucose 240 H
POC Glucose 217 H 251 H
05/30/24 05/30/24 05/30/24
06:03 06:50 07:52
Glucose
POC Glucose 239 H 304 H 222 H
05/30/24 05/30/24 05/30/24
08:04 09:00 09:55
Glucose 256 H
POC Glucose 257 H 217 H
Patient Education
[2024-05-30 11:21] LABS: Glucose - Point of Care 230 mg/dl (70-99)
[2024-05-30 12:26] LABS: Glucose - Point of Care 311 mg/dl (70-99)
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
--- NOTE | 2024-05-30 12:32 | PTCARENOTE ---
Pt assessed.No change in assessment noted.BMP is pending.
--- NOTE | 2024-05-30 12:36 | CM ---
Patient living arrangements unclear. CM will return to confirm with patient as she is able/willing to provide information.
Plan; TBD
[2024-05-30 12:55] LABS: Blood Urea Nitrogen 10 mg/dl (7-17); Calcium 8.5 mg/dl (8.4-10.2); Carbon Dioxide 8 mmol/L (22-30); Chloride 109 mmol/L (98-107); Estimated Creatinine Clearance > 125 ml/min; Glucose 258 mg/dl (70-99); Potassium 4.3 mmol/L (3.5-5.1); Sodium 134 mmol/L (135-145); eGFR > 60.00
[2024-05-30 13:23] LABS: Glucose - Point of Care 228 mg/dl (70-99)
[2024-05-30 14:26] LABS: Glucose - Point of Care 234 mg/dl (70-99)
[2024-05-30] MEDS: NOVOLIN R INSULIN INFUSION 100 IV (15:26)
[2024-05-30 15:33] LABS: Glucose - Point of Care 223 mg/dl (70-99)
--- NOTE | 2024-05-30 15:35 | PTCARENOTE ---
Pt ambulated to the bathroom to void.Gait is steady.Denies pain or nausea.c/o hunger.Ordered dinner.IVF and Insulin gtt maintained as ordered.
[2024-05-30 16:25] LABS: Glucose - Point of Care 231 mg/dl (70-99)
[2024-05-30 16:36] LABS: Hemoglobin 11.6 g/dL (12.0-16.0)
--- NOTE | 2024-05-30 16:40 | PTCARENOTE ---
Pt assessed.No change in assessment noted.
[2024-05-30 16:57] LABS: Blood Urea Nitrogen 11 mg/dl (7-17); Calcium 8.6 mg/dl (8.4-10.2); Carbon Dioxide 10 mmol/L (22-30); Chloride 109 mmol/L (98-107); Estimated Creatinine Clearance > 125 ml/min; Glucose 275 mg/dl (70-99); Potassium 4.6 mmol/L (3.5-5.1); Sodium 134 mmol/L (135-145); eGFR > 60.00
[2024-05-30] MEDS: LOVENOX 40 MG SC (17:11)
[2024-05-30 17:21] LABS: Glucose - Point of Care 275 mg/dl (70-99)
[2024-05-30 18:15] LABS: Glucose - Point of Care 322 mg/dl (70-99)
--- NOTE | 2024-05-30 18:16 | PTCARENOTE ---
Pt ate 100% dinner.1800 blood glucose 322.Dr Pulido made aware.
[2024-05-30 19:34] LABS: Glucose - Point of Care 289 mg/dl (70-99)
--- NOTE | 2024-05-30 20:00 | PTCARENOTE ---
Pt received drowsy but easily arousable. Insulin gtt titrated based on blood sugar. Pt ambulated to bathroom and voided large amt in toilet. Pt then became lightheaded so assisted back to bed. Assessment as charted.
[2024-05-30 20:15] LABS: Glucose - Point of Care 289 mg/dl (70-99)
[2024-05-30 20:41] LABS: Blood Urea Nitrogen 12 mg/dl (7-17); Calcium 8.7 mg/dl (8.4-10.2); Carbon Dioxide 9 mmol/L (22-30); Chloride 109 mmol/L (98-107); Estimated Creatinine Clearance > 125 ml/min; Glucose 303 mg/dl (70-99); Potassium 3.9 mmol/L (3.5-5.1); Sodium 132 mmol/L (135-145); eGFR > 60.00
[2024-05-30 21:21] LABS: Glucose - Point of Care 289 mg/dl (70-99)
[2024-05-30 22:10] LABS: Glucose - Point of Care 279 mg/dl (70-99)
[2024-05-30] MEDS: LEXAPRO 20 MG PO (23:01)
[2024-05-30] MEDS: ZYPREXA 15 MG PO (23:02)
[2024-05-30] MEDS: DESYREL PO (23:02)
[2024-05-30 23:09] LABS: Glucose - Point of Care 245 mg/dl (70-99)
[2024-05-31] VITALS (19 sets, daily range): BP systolic 88–143; BP diastolic 45–127; BMI 39.3
[2024-05-31 00:24] LABS: Glucose - Point of Care 231 mg/dl (70-99)
[2024-05-31 00:59] LABS: Blood Urea Nitrogen 14 mg/dl (7-17); Calcium 8.8 mg/dl (8.4-10.2); Carbon Dioxide 10 mmol/L (22-30); Chloride 111 mmol/L (98-107); Estimated Creatinine Clearance > 125 ml/min; Glucose 247 mg/dl (70-99); Sodium 135 mmol/L (135-145); eGFR > 60.00
[2024-05-31 01:15] LABS: Glucose - Point of Care 253 mg/dl (70-99)
[2024-05-31 02:11] LABS: Glucose - Point of Care 239 mg/dl (70-99)
[2024-05-31] MEDS: D5/0.45%NSS with KCL 20 MEQ 1000 IV (02:53)
[2024-05-31 03:23] LABS: Glucose - Point of Care 234 mg/dl (70-99)
[2024-05-31 04:30] LABS: Glucose - Point of Care 229 mg/dl (70-99)
[2024-05-31 05:21] LABS: Hematocrit 30.3 % (37.0-47.0); Hemoglobin 10.6 g/dL (12.0-16.0); Mean Corpuscular Hgb 27.2 pg (27.0-31.0); Mean Corpuscular Volume 77.7 fL (81.0-99.0); Mean Platelet Volume 10.5 fL (7.4-10.4); Platelet Count 266 10^3/uL (130-400); Red Cell Dist. Width 14.3 % (11.5-14.5); White Blood Cell Count 6.9 10^3/uL (4.8-10.8)
[2024-05-31 05:44] LABS: Potassium 4.1 mmol/L (3.5-5.1)
[2024-05-31 05:49] LABS: Blood Urea Nitrogen 14 mg/dl (7-17); Calcium 9.1 mg/dl (8.4-10.2); Carbon Dioxide 9 mmol/L (22-30); Chloride 112 mmol/L (98-107); Estimated Creatinine Clearance > 125 ml/min; Glucose 230 mg/dl (70-99); Sodium 135 mmol/L (135-145); eGFR > 60.00
[2024-05-31 06:11] LABS: Glucose - Point of Care 244 mg/dl (70-99)
--- NOTE | 2024-05-31 06:18 | PTCARENOTE ---
Pt slept well through the night. Insulin drip currently at 4 units/hr. Assessment unchanged.
[2024-05-31 07:23] LABS: Glucose - Point of Care 275 mg/dl (70-99)
--- NOTE | 2024-05-31 07:48 | PN.DE.MGMTRT ---
Insulin Management
- -
05/31/2024 Diabetes Management Consult Follow up
Patient admitted 05/29 c/o chest pain for 8 days. Found to be in DKA. PMH Type 2 diabetes, bipolar, HTN, asthma, obesity. Prior to admission was ordered 500 mg metformin BID. A1C 14.4%, cr .6, eGFR > 60.
Patient is out of bed in chair, sleeping, difficult to arouse, but able to maintain conversation. States she has had diabetes 21 years, initially gestational diabetes. States she was not able to take her metformin because pharmacy told her the
prescription had already been picked up. She told a different provider she was in [facility] and they did not give her the metformin causing high blood sugar.
She states she does have a glucose monitor but she will take another one, provided Contour Next.
Glucose on admission 490, GAP 30.
05/31 GAP now 12, on insulin infusion @ 4 to 5 units per hour. Will continue insulin infusion and increase hourly rates as follows:
Glucose 151 to 200 from 3 to 3.5
Glucose 201 to 250 from 4 to 5
Glucose 251 to 300 from 5 to 6
Glucose 301 to 350 from 6 to 7
Glucose 351 to 400 from 7 to 8
Waiting for next BMP to assess readiness to transition to subcutaneous insulin. Continue insulin infusion at this time.
I spoke with patients nurse. Demonstrated insulin pen, will ask nursing to reinforce when insulin infusion is stopped and she is taking injections with nursing supervision.
Patient will need insulin at discharge. Will follow
Diabetes History
- -
Type of Diabetes: 2 requiring insulin
Pre-Admission Diabetes Regimen
05/30/24 05/30/24 05/30/24
05:39 08:04 12:17
Creatinine 0.6 0.6 0.6
05/30/24 05/30/24 05/31/24
16:11 20:03 00:33
Creatinine 0.6 0.6 0.6
05/31/24
04:57
Creatinine 0.5 L
Lab Results
Hemoglobin A1c 14.4 % (4.0-5.6) H 05/30/24 05:39
Insulin Pump Settings
IP Diabetes Regimen
05/30/24 05/30/24 05/30/24
05:39 07:52 08:04
Glucose 240 H 256 H
POC Glucose 222 H
05/30/24 05/30/24 05/30/24
09:00 09:55 11:09
Glucose
POC Glucose 257 H 217 H 230 H
05/30/24 05/30/24 05/30/24
12:14 12:17 13:12
Glucose 258 H
POC Glucose 311 H 228 H
05/30/24 05/30/24 05/30/24
14:14 15:22 16:11
Glucose 275 H
POC Glucose 234 H 223 H
05/30/24 05/30/24 05/30/24
16:13 17:10 18:03
Glucose
POC Glucose 231 H 275 H 322 H
05/30/24 05/30/24 05/30/24
19:21 20:03 20:04
Glucose 303 H
POC Glucose 289 H 289 H
05/30/24 05/30/24 05/30/24
21:10 21:58 22:58
Glucose
POC Glucose 289 H 279 H 245 H
05/31/24 05/31/24 05/31/24
00:13 00:33 01:03
Glucose 247 H
POC Glucose 231 H 253 H
05/31/24 05/31/24 05/31/24
01:59 03:11 04:19
Glucose
POC Glucose 239 H 234 H 229 H
05/31/24 05/31/24 05/31/24
04:57 06:00 07:12
Glucose 230 H
POC Glucose 244 H 275 H
Meal type: Dinner
Amount consumed: 100%
Patient Education
--- NOTE | 2024-05-31 07:52 | W.PN.HOSP.TC ---
Today's Communication/Plan
-
bicarb has remained low but improving and AG is nearly closed (14) - mix of hyperchloremic NS acidosis. Will lower fluid rate
Assessment / Plan
Assessment / Plan
This is a 39-year-old female with past medical history of type 2 diabetes on metformin, anxiety depression and mild intermittent asthma who presents to the emergency department with complaints of several days of chest pain and was found to be in
DKA. She has been off her medications for about 8 days because she is does not have access to them.
Assessment and plan
DKA
- admitted to ICU
- bicarb has remained low but improving and AG is nearly closed (14) - mix of hyperchloremic NS acidosis. Will lower fluid rate
- continue insulin gtt
- change fluids to 1/2NS @ 80
- antiemetics prn
- diabetic diet
- a1c and lipid panel in am
- intensivisit consult appreciated
- VIDEO CAMERA OPERATOR DM consult appreciated
Reactive Leukocytosis
-resolved
Anemia
-likely 2/2 dilution - now stable
CP - Non-cardiac. Trop negative. ECG non-ischemic
-Troponins negative; patient stating chest pain resolved this morning
Asthma
- prn albuterol
- continue ICS
Continue Trileptal and sertraline
DVT PPX - lovenox
Code Status - Full code.
Total Critical Care Time 35 minutes. I was immediately available to the patient and staff. I personally examined, reviewed labs, diagnostic images/reports, interpretations, treatment plans, discussed patient care with other providers and family
or caregivers (if patient is unable to make decisions), entered orders as appropriate and documented the medical record.
Anticipated Discharge: 24 - 48 hours
Subjective/Interval History
-
Date of Service: May 31, 2024
no questions or concerns
no chest pain
eating well
Objective Data
-
Labs:
Laboratory Results
05/30/24 05/31/24 05/31/24
20:03 00:33 04:57
WBC 6.9
Hgb 10.6 L
Hct 30.3 L
Plt Count 266
Sodium 132 L 135 135
Potassium 3.9 4.0 4.1
Chloride 109 H 111 H 112 H
Carbon Dioxide 9 L* 10 L* 9 L*
BUN 12 14 14
Creatinine 0.6 0.6 0.5 L
Glucose 303 H 247 H 230 H
Calcium 8.7 8.8 9.1
05/31/24 05/31/24 05/31/24
08:00 12:00 16:00
WBC
Hgb
Hct
Plt Count
Sodium Pending Pending Pending
Potassium Pending Pending Pending
Chloride Pending Pending Pending
Carbon Dioxide Pending Pending Pending
BUN Pending Pending Pending
Creatinine Pending Pending Pending
Glucose Pending Pending Pending
Calcium Pending Pending Pending
05/31/24
20:00
WBC
Hgb
Hct
Plt Count
Sodium Pending
Potassium Pending
Chloride Pending
Carbon Dioxide Pending
BUN Pending
Creatinine Pending
Glucose Pending
Calcium Pending
Vital Signs:
Vital Signs
Temp Pulse Resp BP Pulse Ox
98.0 F 98 21 131/69 96
05/31/24 07:00 05/31/24 06:00 05/31/24 06:00 05/31/24 06:00 05/31/24 03:00
I&O
05/30/24 05/31/24 06/01/24
06:59 06:59 06:59
Intake Total 30 / 183 4178 / 4178
Output Total 250 / 250 600 / 600
Balance -220 / -67 3578 / 3578
Review of Systems
-
History Source: Patient
All other systems: Reviewed and negative
Physical Exam
-
General: No Apparent Distress
HEENT: PERRLA
Respiratory: Clear to Auscultation; Negative Wheezes
Cardiac: Regular Rhythm and S1/S2
GI: Soft and Nontender
Musculoskeletal: No Edema
Skin: Warm and Dry; Negative Rash
Neuro: Other (sleepy but arousable and will answer full questions)
Psych: Calm
Data Reviewed
-
Diagnostic Radiology: Report Reviewed by me
Labs: Labs Reviewed by me
[2024-05-31] MEDS: TRILEPTAL 900 MG PO ×2 (08:06→19:45)
[2024-05-31 08:13] LABS: Glucose - Point of Care 231 mg/dl (70-99)
--- NOTE | 2024-05-31 08:22 | PTCARENOTE ---
Received pt awake and alert.Speech is appropriate.OOB to bathroom.Gait is steady.Denies pain.SR noted.IVF and Insulin gtt infusing.Lungs CTA.POX 97% on RA.Appetite excellent.Voiding yellow urine in bathroom.Plan of care discussed.
[2024-05-31] MEDS: ADVAIR HFA 45/21 MCG INHALER 2 PUFF INH ×2 (08:27→19:29)
[2024-05-31] MEDS: KCL 1010 MEQ IV (09:10)
[2024-05-31 09:13] LABS: Glucose - Point of Care 254 mg/dl (70-99)
[2024-05-31 09:30] LABS: Blood Urea Nitrogen 13 mg/dl (7-17); Calcium 9.1 mg/dl (8.4-10.2); Carbon Dioxide 12 mmol/L (22-30); Chloride 109 mmol/L (98-107); Estimated Creatinine Clearance > 125 ml/min; Glucose 265 mg/dl (70-99); Potassium 3.8 mmol/L (3.5-5.1); Sodium 133 mmol/L (135-145); eGFR > 60.00
[2024-05-31 10:13] LABS: Glucose - Point of Care 278 mg/dl (70-99)
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
[2024-05-31 11:11] LABS: Glucose - Point of Care 237 mg/dl (70-99)
--- NOTE | 2024-05-31 12:00 | PTCARENOTE ---
Pt assessed.No change in assessment noted.Insulin gtt and IVF maintained.Hourly blood glucose in progress.
[2024-05-31 12:14] LABS: Glucose - Point of Care 248 mg/dl (70-99)
[2024-05-31 12:57] LABS: Blood Urea Nitrogen 13 mg/dl (7-17); Calcium 8.9 mg/dl (8.4-10.2); Carbon Dioxide 11 mmol/L (22-30); Chloride 109 mmol/L (98-107); Estimated Creatinine Clearance > 125 ml/min; Glucose 253 mg/dl (70-99); Potassium 3.7 mmol/L (3.5-5.1); Sodium 134 mmol/L (135-145); eGFR > 60.00
[2024-05-31 13:13] LABS: Glucose - Point of Care 347 mg/dl (70-99)
[2024-05-31 14:14] LABS: Glucose - Point of Care 316 mg/dl (70-99)
[2024-05-31 15:17] LABS: Glucose - Point of Care 310 mg/dl (70-99)
[2024-05-31] MEDS: NOVOLIN R INSULIN INFUSION 100 IV (15:45)
[2024-05-31 16:23] LABS: Glucose - Point of Care 241 mg/dl (70-99)
--- NOTE | 2024-05-31 16:43 | PTCARENOTE ---
Pt assessed.No change in assessment noted.Right AC IV discontinued.Right midline not giving blood return.Dr Peoples made aware.IV team at bedside.
[2024-05-31] MEDS: LOVENOX 40 MG SC (17:39)
[2024-05-31 17:40] LABS: Glucose - Point of Care 214 mg/dl (70-99)
[2024-05-31 17:57] LABS: Blood Urea Nitrogen 14 mg/dl (7-17); Calcium 9.2 mg/dl (8.4-10.2); Carbon Dioxide 12 mmol/L (22-30); Chloride 109 mmol/L (98-107); Estimated Creatinine Clearance > 125 ml/min; Glucose 208 mg/dl (70-99); eGFR > 60.00
[2024-05-31 18:00] LABS: Sodium 133 mmol/L (135-145)
[2024-05-31 18:17] LABS: Glucose - Point of Care 213 mg/dl (70-99)
[2024-05-31 19:17] LABS: Glucose - Point of Care 359 mg/dl (70-99)
[2024-05-31 20:07] LABS: Glucose - Point of Care 356 mg/dl (70-99)
[2024-05-31 20:29] LABS: Blood Urea Nitrogen 13 mg/dl (7-17); Calcium 9.1 mg/dl (8.4-10.2); Carbon Dioxide 14 mmol/L (22-30); Chloride 109 mmol/L (98-107); Estimated Creatinine Clearance > 125 ml/min; Glucose 291 mg/dl (70-99); Potassium 3.4 mmol/L (3.5-5.1); Sodium 133 mmol/L (135-145); eGFR > 60.00
--- NOTE | 2024-05-31 20:51 | PTCARENOTE ---
Pt received awake alert and oriented. Remains in NSR. Sinus tach when OOB. Remains on insulin gtt and titrated according to accuchecks. Assessment as charted.
[2024-05-31 21:16] LABS: Glucose - Point of Care 204 mg/dl (70-99)
[2024-05-31] MEDS: 0.45% NACL with KCL 20 MEQ 1000 IV (21:37)
[2024-05-31 22:13] LABS: Glucose - Point of Care 163 mg/dl (70-99)
--- NOTE | 2024-05-31 22:14 | VATNOTE ---
late note: unable to exchange midline for picc since wire would not thread thru existing midline catheter. New right PICC placed.
[2024-05-31] MEDS: LEXAPRO 20 MG PO (22:40)
[2024-05-31] MEDS: DESYREL PO (22:40)
[2024-05-31] MEDS: ZOLOFT 25 MG PO (22:40)
[2024-05-31] MEDS: ZYPREXA 15 MG PO (22:40)
[2024-05-31] MEDS: DESYREL 100 MG PO (22:45)
[2024-05-31 23:15] LABS: Glucose - Point of Care 113 mg/dl (70-99)
[2024-06-01] VITALS (16 sets, daily range): BP systolic 108–141; BP diastolic 52–110; BMI 40.1
[2024-06-01 00:05] LABS: Glucose - Point of Care 131 mg/dl (70-99)
[2024-06-01 01:09] LABS: Glucose - Point of Care 150 mg/dl (70-99)
[2024-06-01 02:09] LABS: Glucose - Point of Care 145 mg/dl (70-99)
[2024-06-01 02:23] LABS: Hematocrit 27.4 % (37.0-47.0); Hemoglobin 9.9 g/dL (12.0-16.0); Mean Corp Hgb Conc. 36.1 g/dL (33.0-37.0); Mean Corpuscular Hgb 27.7 pg (27.0-31.0); Mean Corpuscular Volume 76.5 fL (81.0-99.0); Mean Platelet Volume 9.8 fL (7.4-10.4); Platelet Count 243 10^3/uL (130-400); Red Blood Cell Count 3.58 10^6/uL (4.20-5.40); Red Cell Dist. Width 14.3 % (11.5-14.5); White Blood Cell Count 7.5 10^3/uL (4.8-10.8)
[2024-06-01 02:44] LABS: Blood Urea Nitrogen 12 mg/dl (7-17); Calcium 8.9 mg/dl (8.4-10.2); Carbon Dioxide 15 mmol/L (22-30); Chloride 111 mmol/L (98-107); Estimated Creatinine Clearance > 125 ml/min; Glucose 133 mg/dl (70-99); Potassium 3.3 mmol/L (3.5-5.1); Sodium 139 mmol/L (135-145); eGFR > 60.00
[2024-06-01 03:11] LABS: Glucose - Point of Care 126 mg/dl (70-99)
[2024-06-01] MEDS: ZOFRAN 4 MG IV (03:17)
[2024-06-01] MEDS: KCL 260 MEQ IV (03:55)
[2024-06-01 04:06] LABS: Glucose - Point of Care 148 mg/dl (70-99)
[2024-06-01 05:13] LABS: Glucose - Point of Care 129 mg/dl (70-99)
--- NOTE | 2024-06-01 06:00 | PTCARENOTE ---
Pt slept well through night. Assessment unchanged.
[2024-06-01 06:13] LABS: Glucose - Point of Care 119 mg/dl (70-99)
[2024-06-01 07:09] LABS: Glucose - Point of Care 106 mg/dl (70-99)
--- NOTE | 2024-06-01 07:29 | PN.DE.MGMTRT ---
Insulin Management
- -
06/01/2024 Diabetes Management F/U:
Patient admitted 05/29 c/o chest pain for 8 days. Found to be in DKA. PMH Type 2 diabetes, bipolar, HTN, asthma, obesity. Prior to admission was ordered 500 mg metformin BID. Glucose on admission 490, GAP 30. A1C 14.4%, cr .6, eGFR > 60.
Patient is out of bed in chair, sleeping, difficult to arouse, but able to maintain conversation. States she has had diabetes 21 years, initially gestational diabetes. States she was not able to take her metformin because pharmacy told her the
prescription had already been picked up. She told a different provider she was in correction and they did not give her the metformin causing high blood sugar. She states she does have a glucose monitor but she will take another one, provided Contour
Next.
Pt awake, alert, sitting up in bed, able to discuss diabetes mgt.
Remains on insulin infusion at 2units/hr. GAP has closed as of 8am BMP.
Will transition off drip to SQ inulin. Give Lantus 20 units NOW and start 25 units @ HS.
Start AC NovoLog 10 units and moderate corrective with meals. start metformin 500mg BID tomorrow.
Had lengthy discussion with pt regarding behavioral changes including dietary choices, taking her medications along with consistent glucose monitoring for optimal diabetes mgt at home. Discussed outpatient diabetes education and provided information
that was written down in her take home booklet
Pt received instructions with return Demonstration of insulin pen use.
Nursing will continue to reinforce education with self insulin injections using insulin pens, since she will need insulin at discharge.
Diabetes History
- -
Type of Diabetes: 2 requiring insulin
Pre-Admission Diabetes Regimen
05/31/24 05/31/24 05/31/24
09:03 12:20 17:26
Creatinine 0.6 0.6 0.6
05/31/24 06/01/24
20:01 02:09
Creatinine 0.6 0.6
Lab Results
Hemoglobin A1c 14.4 % (4.0-5.6) H 05/30/24 05:39
Insulin Pump Settings
IP Diabetes Regimen
05/31/24 05/31/24 05/31/24
08:02 09:02 09:03
Glucose 265 H
POC Glucose 231 H 254 H
05/31/24 05/31/24 05/31/24
10:02 10:59 12:03
Glucose
POC Glucose 278 H 237 H 248 H
05/31/24 05/31/24 05/31/24
12:20 13:02 14:02
Glucose 253 H
POC Glucose 347 H 316 H
05/31/24 05/31/24 05/31/24
15:06 16:12 17:26
Glucose 208 H
POC Glucose 310 H 241 H
05/31/24 05/31/24 05/31/24
17:28 18:05 19:06
Glucose
POC Glucose 214 H 213 H 359 H
05/31/24 05/31/24 05/31/24
19:56 20:01 21:05
Glucose 291 H
POC Glucose 356 H 204 H
05/31/24 05/31/24 05/31/24
22:02 23:03 23:54
Glucose
POC Glucose 163 H 113 H 131 H
06/01/24 06/01/24 06/01/24
00:58 01:58 02:09
Glucose 133 H
POC Glucose 150 H 145 H
06/01/24 06/01/24 06/01/24
02:59 03:55 05:02
Glucose
POC Glucose 126 H 148 H 129 H
06/01/24 06/01/24
06:02 06:58
Glucose
POC Glucose 119 H 106 H
Meal type: Breakfast
Amount consumed: 100%
Patient Education
[2024-06-01] MEDS: ADVAIR HFA 45/21 MCG INHALER 2 PUFF INH ×2 (07:43→20:19)
--- NOTE | 2024-06-01 07:56 | W.PN.HOSP.TC ---
Today's Communication/Plan
-
likely transition to subQ insulin later this morning
would observe an additional night post transition
Assessment / Plan
Assessment / Plan
This is a 39-year-old female with past medical history of type 2 diabetes on metformin, anxiety depression and mild intermittent asthma who presents to the emergency department with complaints of several days of chest pain and was found to be in
DKA. She has been off her medications for about 8 days because she is does not have access to them.
Assessment and plan
DKA
- A1c = 14.4
- admitted to ICU
- bicarb has remained low but improving and AG is nearly closed - mix of hyperchloremic NS acidosis. fluid rate lowered
- continue insulin gtt --> expect to transition to subQ insulin later this morning - texting DM UNDERLINER
- change fluids to 1/2NS @ 80
- antiemetics prn
- diabetic diet
- timber management professor consult appreciated
- UNDERLINER DM consult appreciated
Hypokalemia
-repleted
Reactive Leukocytosis
-resolved
Anemia
-likely 2/2 dilution - relatively stable; will monitor. no e/o bleeding
CP - Non-cardiac. Trop negative. ECG non-ischemic
-Troponins negative; patient stating chest pain resolved this morning
Asthma
- prn albuterol
- continue ICS
Continue Trileptal and sertraline
DVT PPX - lovenox
Code Status - Full code.
Total Critical Care Time 35 minutes. I was immediately available to the patient and staff. I personally examined, reviewed labs, diagnostic images/reports, interpretations, treatment plans, discussed patient care with other providers and family
or caregivers (if patient is unable to make decisions), entered orders as appropriate and documented the medical record.
Anticipated Discharge: 24 - 48 hours
Subjective/Interval History
-
Date of Service: June 01, 2024
sitting up
feeling well
no new complaints
Objective Data
-
Labs:
Laboratory Results
05/31/24 06/01/24 06/01/24
20:01 02:09 08:00
WBC 7.5
Hgb 9.9 L
Hct 27.4 L
Plt Count 243
Sodium 133 L 139 Pending
Potassium 3.4 L 3.3 L Pending
Chloride 109 H 111 H Pending
Carbon Dioxide 14 L* 15 L Pending
BUN 13 12 Pending
Creatinine 0.6 0.6 Pending
Glucose 291 H 133 H Pending
Calcium 9.1 8.9 Pending
Vital Signs:
Vital Signs
Temp Pulse Resp BP Pulse Ox
98.3 F 84 13 109/53 98
06/01/24 03:26 06/01/24 07:54 06/01/24 07:54 06/01/24 06:00 06/01/24 07:54
I&O
05/31/24 06/01/24 06/02/24
06:59 06:59 06:59
Intake Total 4178 / 4333 3056.5 / 3056.5
Output Total 600 / 600 1150 / 1150
Balance 3578 / 3733 1906.5 / 1906.5
Review of Systems
-
History Source: Patient
All other systems: Reviewed and negative
Physical Exam
-
General: No Apparent Distress
HEENT: PERRLA
Respiratory: Clear to Auscultation; Negative Wheezes
Cardiac: Regular Rhythm and S1/S2
GI: Soft and Nontender
Musculoskeletal: No Edema
Skin: Warm and Dry; Negative Rash
Neuro: Awake, Alert and AO x 3
Psych: Calm
Data Reviewed
-
Diagnostic Radiology: Report Reviewed by me
Labs: Labs Reviewed by me
--- NOTE | 2024-06-01 08:10 | PTCARENOTE ---
Received pt in bed. She just got back to bed from ambulating to the BR where she voided clear yellow urine. She is having some 'spotting' from her vagina. Moisten wipes provided. She did not need a sanitary napkin at this time. Right DL PICC with
insulin per protocol and IVF as ordered. Lungs CTA. RA pulse ox 98%. Obese, +BSX4, constipation. Discussed options to relieve her constipation. She had no other questions at this time. Safe environment maintained. Will continue to monitor.
[2024-06-01 08:28] LABS: Glucose - Point of Care 122 mg/dl (70-99)
[2024-06-01 09:19] LABS: Blood Urea Nitrogen 11 mg/dl (7-17); Calcium 9.2 mg/dl (8.4-10.2); Carbon Dioxide 15 mmol/L (22-30); Chloride 111 mmol/L (98-107); Estimated Creatinine Clearance > 125 ml/min; Glucose 124 mg/dl (70-99); Iron 150 ug/dl (37-170); Potassium 3.6 mmol/L (3.5-5.1); Sodium 137 mmol/L (135-145); eGFR > 60.00
[2024-06-01 09:28] LABS: Percent Saturation 66 % (20-50); Total Iron Binding Capacity 225 ug/dl (265-497)
[2024-06-01] MEDS: 0.45% NACL with KCL 20 MEQ 1000 IV (09:37)
[2024-06-01] MEDS: TRILEPTAL 900 MG PO ×2 (09:39→19:23)
[2024-06-01] MEDS: COLACE 100 MG PO ×2 (09:40→19:23)
[2024-06-01 09:47] LABS: Glucose - Point of Care 189 mg/dl (70-99)
[2024-06-01 09:51] LABS: Ferritin 77.6 ng/ml (6.24-137)
--- NOTE | 2024-06-01 10:55 | W.PN.INTV ---
Addendum entered and electronically signed by Nilda Peoples MD 06/01/24 11:47:
Patient seen and examined independently by myself. Reviewed resident note and agree with assessment and plan
Addendum entered and electronically signed by Nilda Peoples MD 06/01/24 11:41:
Patient is feeling improved overall.
She states ' you all got me high on the meds'. She states that the psychiatrist has her on medications. I relayed to her that her medications she is getting on the same that are listed as taking as an outpatient
She denies nausea, shortness of breath
Vital stable, chest exam is clear
Remains on insulin at 2 units
Diet decreased to 1200 kim
Anion gap resolved
Received potassium supplement this morning
A/P
Moving forward, continue with management, hopefully can wean off insulin drip
Subcutaneous insulin to start
Reviewed with patient her hemoglobin A1c being greater than 14. She became very defensive when I brought this up. 'You dont know what i got going on'
I relayed to her how will be important to modify her diet. She states ' I am eating the same way at home as I do here' I reminded her that she is not getting any Chipotle here which she eats every day at home according to her own history, along
with supplements throughout the day.
Despite my attempts to review with her the importance of dietary discretion, she waved me off.
Unfortunately, I suspect that she will be difficult to control as an outpatient given dietary discretion.
Not sure whether she may require evaluation by psychiatry at some point
This was reviewed with the primary service
Anticipate transfer out of ICU later today. We will sign off. Please call with questions
Original Note:
Today's Communication / Plan
Recommendations
Currently only requiring 1 to 2 units insulin-BG controlled-will try to transition into SC insulin later in the day after DM SPECIAL ED ASSISTANT evaluation
Assessment
-
Patient is a 39yo F with pmh of NIDDM admitted with DKA.
#DKA most likely in the setting of uncontrolled DM type 2
-Receiving 1/2 N/S + KCL 20 meq at 80cc/hr
-Blood glucose level was in the high 300s yesterday afternoon-patient's diet was changed to 1200 kim-blood glucose levels have been controlled since
-Receiving insulin drip per protocol (current rate between 1-2u/h)--blood glucose decreasing steadily-currently 133
-Bicarb improving- AG 12--saturating 100% on room air
-Hypokalemia-ordered 20 KCl PO
-Metformin held
-Zofran PRN
-Hgb A1c= 14.4
-Consulted DM SPECIAL ED ASSISTANT for evaluation of transitioning to SC insulin
-Patient may be downgraded after transition to SC insulin
# Leukocytosis
Resolved
Remains afebrile
Chest x-ray, UA unremarkable for infection
Will continue to check CBC
# History of asthma
Lungs were clear, no wheezing
receiving Advair BD
Albuterol as needed
# Mild anemia
Most likely dilutional
Patient states she is anemic at baseline (due to vitamin B12 deficiency?)
Iron studies ordered
Patient has not had any bowel movement since admission, unaware if she has blood in [id number] ordered
Will continue to monitor hemoglobin
# Anxiety/depression
Continue Lexapro and Zyprexa
# DVT prophylaxis
Lovenox
Diet: 1200 calorie diabetic
LFT normal, lipid panel normal, B-hCG negative
Subjective Dataa
Subjective Data
Date of Service:
Date of Service: June 01, 2024
Chief Complaint: Leacher Follow Up
Subjective:
Is alert, awake and oriented. Can hold conversation. Denies abdominal pain, nausea, vomiting. Denies any shortness of breath or chest pain.
Denies decreased appetite.
Review of Systems
General: Satisfactory Appetite
GI: Abdominal Pain (negative), Nausea (negative), Vomiting (negative) and Constipation
Neuro: Headache (neg) and Dizziness (neg)
Objective Data
Data Reviewed
Vital Signs / I&O / Oxygen:
Vital Signs
Temp Pulse Resp BP Pulse Ox
98.2 F 84 18 118/56 98
06/01/24 08:00 06/01/24 10:00 06/01/24 10:00 06/01/24 10:00 06/01/24 10:42
Intake and Output
05/31/24 06/01/24 06/02/24
06:59 06:59 06:59
Intake Total 4178 / 4333 3056.5 / 3138.5 567.4 / 567.4
Output Total 600 / 600 1150 / 1150 250 / 250
Balance 3578 / 3733 1906.5 / 1988.5 317.4 / 317.4
SaO2 98
Physical Exam
General: Comfortable (Saturating 100% on room air) and Good Appetite
HEENT: Normocephalic, Anicteric and Moist Mucous Membranes
Cardiovascular: S1-S2 and Regular Rhythm
Respiratory: Clear, Wheeze (neg), Crackles (neg) and Non-Labored Respirations
GI: Soft, Distended (mild), Non Tender and Normal Bowel Sounds
Neurology: Awake, Alert, Oriented, AO x 3, No Motor Deficits and Tremors (neg)
Skin: Warm and Dry
Labs/Micro/Reports
Lab Data
06/01/24 02:09
06/01/24 08:17
Microbiology
05/29/24 18:35 Urine Urine Culture - Final
05/29/24 22:45 Nose MRSA Screen - Final
Staph aureus MRSA
[2024-06-01 11:00] LABS: Glucose - Point of Care 183 mg/dl (70-99)
[2024-06-01] MEDS: LANTUS 0.2 UNITS SC (11:58)
[2024-06-01 12:05] LABS: Glucose - Point of Care 151 mg/dl (70-99)
[2024-06-01] MEDS: NOVOLOG FLEXPEN-MODERATE RESISTANCE 1 UNITS SC (12:46)
[2024-06-01] MEDS: NOVOLOG FLEXPEN 10 UNITS SC ×2 (12:48→16:23)
[2024-06-01] MEDS: KCL 20 MEQ PO (14:06)
[2024-06-01] MEDS: MIRALAX 17 GRAMS PO (14:07)
--- NOTE | 2024-06-01 14:25 | PTCARENOTE ---
Miralax adminstered for constipation. She made several attempts for BM.
--- NOTE | 2024-06-01 15:36 | PTCARENOTE ---
4th floor not ready for report. Pt will get a shower prior to transfer. Right DL PICC covered with silicone border dressing then wrapped in a plastic bag secured with 2'silk tape. Pt informed to use the navarrete to vacate the shower. She verbalized her
understanding.
--- NOTE | 2024-06-01 15:51 | TRANSFER ---
Report called to [facility] for room 403-2.
[2024-06-01] MEDS: NOVOLOG FLEXPEN-MODERATE RESISTANCE 5 UNITS SC (16:22)
[2024-06-01 16:34] LABS: Glucose - Point of Care 254 mg/dl (70-99)
[2024-06-01] MEDS: LOVENOX 40 MG SC (17:06)
[2024-06-01 21:41] LABS: Glucose - Point of Care 284 mg/dl (70-99)
[2024-06-01] MEDS: LANTUS 0.25 UNITS SC (21:42)
[2024-06-01] MEDS: LEXAPRO 20 MG PO (21:42)
[2024-06-01] MEDS: ZYPREXA PO (21:45)
[2024-06-02 03:54] VITALS: BP 150/79
[2024-06-02 06:11] LABS: Blood Urea Nitrogen 10 mg/dl (7-17); Carbon Dioxide 18 mmol/L (22-30); Chloride 111 mmol/L (98-107); Estimated Creatinine Clearance > 125 ml/min; Glucose 267 mg/dl (70-99); Potassium 4.1 mmol/L (3.5-5.1); Sodium 137 mmol/L (135-145); eGFR > 60.00
[2024-06-02 07:34] LABS: Glucose - Point of Care 246 mg/dl (70-99)
[2024-06-02] MEDS: ADVAIR HFA 45/21 MCG INHALER 2 PUFF INH (07:50)
[2024-06-02] MEDS: MIRALAX 17 GRAMS PO (08:41)
[2024-06-02] MEDS: GLUCOPHAGE 500 MG PO (08:42)
[2024-06-02] MEDS: COLACE 100 MG PO (08:42)
[2024-06-02] MEDS: TRILEPTAL 900 MG PO (08:42)
[2024-06-02] MEDS: NOVOLOG FLEXPEN-MODERATE RESISTANCE 3 UNITS SC (08:46)
[2024-06-02] MEDS: NOVOLOG FLEXPEN 10 UNITS SC (08:47)
--- NOTE | 2024-06-02 10:18 | W.PN.HOSP.TC ---
Today's Communication/Plan
-
OK for DC today
Assessment / Plan
Assessment / Plan
This is a 39-year-old female with past medical history of type 2 diabetes on metformin, anxiety depression and mild intermittent asthma who presents to the emergency department with complaints of several days of chest pain and was found to be in
DKA. She has been off her medications for about 8 days because she is does not have access to them.
Assessment and plan
DKA
- A1c = 14.4
- admitted to ICU
- AG closed; has some residual non-gap metabolic acidosis/hyperchloremic acidosis - will improve without further NS
- started on subQ insulin - lantus 25 units qhs; increase aspart to 12 units AC based on BGL over past 24 hours
- tobin top metformin given degree of acidosis on admission --> patient needs to follow up closely with PCP
Hypokalemia
-repleted
Reactive Leukocytosis
-resolved
Anemia
-likely 2/2 dilution - relatively stable; will monitor. no e/o bleeding
CP - Non-cardiac. Trop negative. ECG non-ischemic
-Troponins negative; patient stating chest pain resolved this morning
Asthma
- prn albuterol
- continue ICS
Continue Trileptal and sertraline
DVT PPX - lovenox
Code Status - Full code.
Anticipated Discharge: Today
Subjective/Interval History
-
Date of Service: June 02, 2024
feeling good today
wants to go home
feels comfortable using insulin pen
Objective Data
-
Labs:
Laboratory Results
06/02/24
05:42
Sodium 137
Potassium 4.1
Chloride 111 H
Carbon Dioxide 18 L
BUN 10
Creatinine 0.5 L
Glucose 267 H
Calcium 9.0
Vital Signs:
Vital Signs
Temp Pulse Resp BP Pulse Ox
98.3 F 106 16 150/79 100
06/02/24 03:54 06/02/24 07:54 06/02/24 07:54 06/02/24 03:54 06/02/24 07:54
I&O
06/01/24 06/02/24 06/03/24
06:59 06:59 05:59
Intake Total 3056.5 / 3138.5 1877.9 / 1877.9
Output Total 1150 / 1150 1450 / 1450
Balance 1906.5 / 1988.5 427.9 / 427.9
Review of Systems
-
History Source: Patient
All other systems: Reviewed and negative
Physical Exam
-
General: No Apparent Distress
HEENT: PERRLA
Respiratory: Clear to Auscultation; Negative Wheezes
Cardiac: Regular Rhythm and S1/S2
GI: Soft and Nontender
Musculoskeletal: No Edema
Skin: Warm and Dry; Negative Rash
Neuro: Awake, Alert and AO x 3
Psych: Calm
Data Reviewed
-
Diagnostic Radiology: Report Reviewed by me
Labs: Labs Reviewed by me
--- NOTE | 2024-06-02 10:38 | W.DS.TRANS ---
DC Summary - Dictionary Editor
-
Discharge Instructions:
Discharge Diagnosis/Procedures diabetic ketoacidosis
Diet Diabetic, Carb Controlled
Activity As tolerated
Driving Restrictions As prior to admission
Bathing Restrictions None
Instructions:
Stand-Alone Forms:
Changes to Home Medications: Yes
Discharge Medications:
DC Medications w/original date entered in [employer]
albuterol sulfate 90 mcg/actuation breath activated powder inhaler (ProAir RespiClick) 1 inh inhalation R [id number] PRN sob/wheezing 05/29/24
escitalopram oxalate 20 mg tablet 20 mg PO HS Mental Health/Anxiety 05/29/24
fluticasone 100 mcg-salmeterol 50 mcg/dose blistr powdr for inhalation 1 inh inhalation R BID Lung/Breathing Issues 05/29/24
olanzapine 15 mg tablet 15 mg PO HS Mental Health/Anxiety 05/29/24
oxcarbazepine 300 mg tablet 900 mg PO BID Mental Health/Anxiety 05/29/24
trazodone 100 mg tablet 100 mg PO HS Sleep 05/29/24
blood-glucose meter (Accu-Chek Guide Glucose Meter) #1 ea 06/02/24
insulin aspart U-100 100 unit/mL (3 mL) subcutaneous pen (Novolog FlexPen U-100 Insulin aspart) 12 unit (0.12 mL) SC AC #5 ea 06/02/24
insulin glargine 100 unit/mL (3 mL) subcutaneous pen (Lantus Solostar U-100 Insulin) 25 unit (0.25 mL) SC HS #5 ea 06/02/24
lancets (Accu-Chek Softclix Lancets) #200 ea 06/02/24
pen needle, diabetic 32 gauge x ' (BD Ultra-Fine Carla Pen Needle) #200 ea 06/02/24
Home Medication Changes
STOP METFORMIN - your PCP will let you know if this should be resumed
You are started on Lantus 25 units in evenings
You are started on Aspart - 12 units before meals
These insulin doses will be adjusted as outpatient
Pending Results: No
[2024-06-02 11:30] VITALS: BP 142/85
--- NOTE | 2024-06-02 11:34 | CM ---
CM following re: discharge planning.
Reviewed pt's chart, met with pt.
Discharge order noted. Pt is aware, expressed her agreement with discharge. IMM reviewed, placed on chart, pt has a copy.
Pt is requested a ride to get to her sister;s [address] at [address] [id number]
Pt has [employer] insurance as a secondary and this CM tried to set up transportation with [employer] and they cannot set up transforation due to pt's account is not updated.
[facility] transport is set up with pickle pumper time 12:30 p.m. Pt needs to be on the main lobby 10 minutes prior to pickle pumper.
RN is aware.
D/c plan: home to sister's house, no needs. [facility] transport arranged.
[2024-06-02 11:44] LABS: Glucose - Point of Care 362 mg/dl (70-99)
[2024-06-02] MEDS: NOVOLOG FLEXPEN-MODERATE RESISTANCE SC (11:45)
[2024-06-02] MEDS: NOVOLOG FLEXPEN SC (11:45)
--- NOTE | 2024-06-02 12:48 | PTCARENOTE ---
Received patient this am AAOx3. Pt with flat affect. Pt tolerated diet well. Pt OOB ambulating in room independently with s steady gait. Pt for discharge today. Pt 'stated that she need a ride home to [place]'. Case management made
arrangements for patient to take a lyft home. Pt's BS at lunch time was 362. Pt refused insulin. Pt stated ' that she will eat lunch at home an take her blood sugar an insulin then.
--- NOTE | 2024-06-02 14:02 | W.DCSUMMARY ---
Discharge Summary
Discharge Data
Date of Admission: 05/29/24
Date of Discharge: 06/02/24
-
Pending Results: No
Hospital Course
Discharging Physician : Dr. Jaylin Pulido
Disposition : Home
Principal Discharge diagnosis : Diabetic Ketoacidosis
Hospital Course :
Ms. Lisset Bolaños is a 39-year-old woman with past medical history of type 2 diabetes on metformin, anxiety/depression and mild intermittent asthma, who presents to the emergency department with complaints of several days of chest pain. Triage vitals
significant for BP 151/65. Labs with undetectable bicarb, glucose 490. She was admitted to the ICU for treatment of DKA. She remained on fluids and insulin gtt until gap closed which was 3 days post admission. She continues to have mild
hyperchloremic acidosis. She received insulin teaching and is discharged on Lantus 25 units qhs; and Aspart 12 units AC. She is not resumed on metformin given severe acidosis on admit - and will follow up closely with her PCP for further direction
and titration of these medications.
She was found to have anemia of inflammation with drop in Hg after aggressive fluid resuscitation. No evidence of bleeding. Labs to be monitored as outpatient.
Time spent on discharge was 35 minutes.
Important imaging findings :
Procedure findings :
Discharge Plan
-
Patient Disposition: Home (Routine Discharge)
Discharge Diagnosis/Procedures: diabetic ketoacidosis
Diet: Diabetic, Carb Controlled
Activity: As tolerated
Driving Restrictions: As prior to admission
Bathing Restrictions: None
Activity Restrictions/Additional Instructions:
It is important that you see your primary care doctor within the next week.
Write down your glucose levels 4x/day and bring in recorded results
Referrals:
NONE,* [Family Provider] - in less than 1 week
Additional Discharge Medication Instructions: STOP METFORMIN - your PCP will let you know if this should be resumed
You are started on Lantus 25 units in evenings
You are started on Aspart - 12 units before meals
These insulin doses will be adjusted as outpatient
Prescriptions:
New
(DME) lancets [Accu-Chek Softclix Lancets] Misc
Qty: 200 0RF
Rx Instructions:
As Directed
insulin glargine [Lantus Solostar U-100 Insulin] 100 unit/mL (3 mL) Insulin Pen
25 unit SC HS Qty: 5 0RF
(DME) pen needle, diabetic [BD Ultra-Fine Carla Pen Needle] 32 gauge x ' Needle
Qty: 200 0RF
Rx Instructions:
As Directed
(DME) blood-glucose meter [Accu-Chek Guide Glucose Meter] Misc
Qty: 1 0RF
Rx Instructions:
As Directed
insulin aspart U-100 [Novolog FlexPen U-100 Insulin] 100 unit/mL (3 mL) Insulin Pen
12 unit SC AC Qty: 5 0RF
Continued
oxcarbazepine 300 mg tablet
900 mg PO BID
trazodone 100 mg tablet
100 mg PO HS
fluticasone propion-salmeterol 100-50 mcg/dose blister with device
1 inh INHALATION R BID
ProAir RespiClick 90 mcg/actuation aerosol powdr breath activated
1 inh INHALATION R [id number] PRN (Reason: sob/wheezing)
olanzapine 15 mg tablet
15 mg PO HS
escitalopram oxalate 20 mg tablet
20 mg PO HS
Discontinued
metformin 500 mg tablet
500 mg PO BID
Discharge Orders:
Discharge Patient (As Directed); Ordered 06/02/24
Ordered By: Jaylin Pulido
Discharge Date and Time
Discharge Date/Time: 06/02/24 12:29
Print Language: SENEGALESE
== END 2024-06-02 12:29 | disposition home or self-care (01) | DRG 638 ==
LOC: 4 EAST ACU 20:53
PROVIDERS: Nurse Practitioner; Nurse Practitioner Primary Care; Radiology Diagnostic Radiology; Registered Nurse; ADMITTING PHYSICIAN Internal Medicine; ATTENDING PHYSICIAN Student in an Organized Health Care Education/Training Program; CONSULT PHYSICIAN Internal Medicine Critical Care Medicine; EMERGENCY PHYSICIAN Emergency Medicine
PROC: 02HV33Z Insertion of Infusion Device into Superior Vena Cava, Percutaneous Approach (ICD-10-PCS; 2024-05-31)
DX: E11.10 Type 2 diabetes mellitus with ketoacidosis without coma (principal); N17.9 Acute kidney failure, unspecified; Z68.41 Body mass index [BMI] 40.0-44.9, adult; F31.9 Bipolar disorder, unspecified; I10 Essential (primary) hypertension; T38.3X6A Underdosing of insulin and oral hypoglycemic [antidiabetic] drugs, initial encounter; E66.9 Obesity, unspecified; D64.89 Other specified anemias; D72.829 Elevated white blood cell count, unspecified; E87.6 Hypokalemia; F41.9 Anxiety disorder, unspecified; J45.20 Mild intermittent asthma, uncomplicated; Z88.6 Allergy status to analgesic agent; Z79.84 Long term (current) use of oral hypoglycemic drugs; Z91.138 Patient's unintentional underdosing of medication regimen for other reason; Z79.899 Other long term (current) drug therapy
CPT/HCPCS: 36600; 71045; 80048; 80053; 80061; 81003; 81015; 82010; 82728; 82805; 82962; 83036; 83540; 83550; 83690; 83735; 84484; 84703; 85018; 85025; 85027; 85379; 87070; 87086; 87147; 93005; 94640; 96361; 96374; 96376; 99285; J3480; J7030